=== PATIENT | female | born 1965 | race Caucasian/White ===

== ENCOUNTER 2018-09-30 21:49 | Emergency (ER) | payer MEDICAID ==
[~2018-09-30] VITALS: Ht 157.5 cm; Wt 46.3 kg
[2018-09-30 21:53] VITALS: BP 138/63
--- NOTE | 2018-09-30 21:57 | NUR ---
TO LOBBY A/W BED, AMBULATORY
[2018-09-30 21:58] VITALS: BP 138/63
--- NOTE | 2018-09-30 23:19 | NUR ---
PT TAKEN TO BED 5
--- NOTE | 2018-09-30 23:25 | NUR ---
53/F PRESENTS TO ED WITH , C/O L GREATER THAT R LOWER MOLAR PAIN, RADIATING TO UPPER ANTERIOR NECK, X2 WEEKS, WORSENING X3 DAYS. NOTED SWELLING ON UPPER ANTERIOR NECK. REPORTS MILD DYSPHAGIA DUE TO PAIN. REPORTS SUBJECTIVE FEVER AND CHILLS, AFEBRILE AT THIS TIME. DENIES CP, SOB, N/V. AOX4, RR EVEN AND UNLABORED. HX ASTHMA RX ALBUTEROL INHALER
--- NOTE | 2018-09-30 23:50 | NUR ---
Dr. Nicole evaluating patient at bedside.
[2018-09-30] MEDS ORDERED: KETOROLAC 60 MG/2 ML VIAL IM ONE (23:55)
[2018-09-30] MEDS ORDERED: AMOXICILLIN 500 MG CAP PO ONE (23:55)
[2018-10-01] MEDS ORDERED: AMOXICILLIN SUSP 250 MG/5 ML PO ONE (00:10)
[2018-10-01] MEDS ORDERED: AMOXICILLIN SUSP 250 MG/5 ML ONE (00:13)
--- NOTE | 2018-10-01 00:42 | NUR ---
Patient discharged with v/s stable. Written and verbal after care instructions given and explained. Patient alert, oriented and verbalized understanding of instructions. Ambulatory with steady gait. All questions addressed prior to discharge. ID band removed. Patient advised to follow up with PMD. Rx of MOTRIN, TRAMADOL, AMOXICILLIN given. Patient educated on indication of medication including possible reaction and side effects. Opportunity to ask questions provided and answered.
== END 2018-10-01 00:42 | disposition home or self-care (01) ==
LOC: MED 21:49
DX: K04.7 Periapical abscess without sinus (principal); I10 Essential (primary) hypertension; F17.210 Nicotine dependence, cigarettes, uncomplicated
CPT/HCPCS: 96372; 99283; J1885

== ENCOUNTER 2018-11-15 00:41 | Emergency (ER) | payer MEDICAID ==
[~2018-11-15] VITALS: Ht 157.5 cm; Wt 46.3 kg
[2018-11-15 00:42] VITALS: BP 134/90
--- NOTE | 2018-11-15 00:42 | NUR ---
TO BED # 03 AMBULATORY
[2018-11-15] MEDS ORDERED: LIDOCAINE 1% ***ER ONLY *** 10 MG/ML VIAL INJ ONE (01:00)
--- NOTE | 2018-11-15 01:00 | NUR ---
PT CAME INTO ER WITH C/O REDNESS, SWELLING AND PAIN ON HER CHIN X 2 WEEKS. PT WAS SEEN BY ERMD 2 WEEKS AGO. PAIN LEVEL IS 8/10 AT THIS TIME. PT IS A/OX4. ER MD MADE AWARE OF STATUS, SAFETY MEASURES IN PLACE.
--- NOTE | 2018-11-15 01:05 | NUR ---
AT PT BEDSIDE. PT DOING A PROCEDURE.
[2018-11-15] MEDS ORDERED: LIDOCAINE MPF 1% - 5 mL VIAL 5 ML ONE (01:10)
[2018-11-15 01:22] VITALS: BP 134/90
--- NOTE | 2018-11-15 01:22 | NUR ---
Patient discharged with v/s stable. Written and verbal after care instructions given and explained. Patient alert, oriented and verbalized understanding of instructions. Ambulatory with steady gait. All questions addressed prior to discharge. ID band removed. Patient advised to follow up with PMD. Rx of KEFLEX, PREDNISONE, MOTRIN, BACTRIM, NORCO WAS given. Patient educated on indication of medication including possible reaction and side effects. Opportunity to ask questions provided and answered. PT PAIN LEVEL HAS DECREASED 3/10 PRIOR TO D/C.
== END 2018-11-15 01:22 | disposition home or self-care (01) ==
LOC: MED 00:41
DX: L02.01 Cutaneous abscess of face (principal); J45.909 Unspecified asthma, uncomplicated; F17.200 Nicotine dependence, unspecified, uncomplicated; Z90.49 Acquired absence of other specified parts of digestive tract
CPT/HCPCS: 10060; 99283; J2001

== ENCOUNTER 2018-11-16 21:37 | Emergency (ER) | payer MEDICAID ==
[~2018-11-16] VITALS: Ht 157.5 cm; Wt 44.0 kg
[2018-11-16 22:12] VITALS: BP 106/69
--- NOTE | 2018-11-16 22:20 | NUR ---
PT AMBULATED BACK TO THE LOBBY, ESAS
--- NOTE | 2018-11-16 22:39 | NUR ---
pt ambulated to bed 9
--- NOTE | 2018-11-16 22:49 | NUR ---
53 Y/O F PRESENTED TO ED FOR RECHECK OF ABSCESS TO CHIN. PT SEEN X3DAYS AGO AND UNABLE TO SEE PCP UNTILL TOMORROW. PT WATNED A RECHECK AND GUAZE REMOVED TODAY. ABSCESS NOTED TO UNDERCHIN WITH SCANT DRAINAGE NOTED. 12/16 PAIN TO CHIN. ERMD NOTIFIED. WILL CONTINUE TO MONITOR.
[2018-11-16] MEDS ORDERED: IBUPROFEN 400 MG TAB PO ONE (23:45)
--- NOTE | 2018-11-16 23:47 | NUR ---
PT WOUND COVERED WITH NON ADHERENT GAUZE AND BANDAID.
[2018-11-17 00:09] VITALS: BP 110/70
--- NOTE | 2018-11-17 00:09 | NUR ---
Patient discharged with v/s stable. Written and verbal after care instructions given and explained. Patient alert, oriented and verbalized understanding of instructions. Ambulatory with steady gait. All questions addressed prior to discharge. ID band removed. Patient advised to follow up with PMD. Rx of MOTRIN 600MG given. Patient educated on indication of medication including possible reaction and side effects. Opportunity to ask questions provided and answered.
== END 2018-11-17 00:09 | disposition home or self-care (01) ==
LOC: MED 21:37
DX: L02.11 Cutaneous abscess of neck (principal); J45.909 Unspecified asthma, uncomplicated; I10 Essential (primary) hypertension
CPT/HCPCS: 99282

== ENCOUNTER 2020-02-21 17:35 | Emergency (ER) | payer MEDICAID ==
[~2020-02-21] VITALS: Ht 157.5 cm; Wt 46.3 kg
[2020-02-21 17:51] VITALS: BP 130/72
[2020-02-21] MEDS ORDERED: NACL 0.9% 1,000 ML IV SCH (18:07)
--- NOTE | 2020-02-21 18:08 | NUR ---
54 YO FEMALE C/O ABSCESS TO RIGHT CHIN X 3 DAYS. MED HX: ASTHMA, HTN
[2020-02-21] MEDS ORDERED: ACETAMINOPHEN EXTRA STRENGTH 500 MG TAB PO ONE (18:10)
[2020-02-21] MEDS ORDERED: AMPICILLIN/SULBACTAM 3 GM in NACL 0.9% 100 ML IV ONE (18:40)
[2020-02-21] MEDS ORDERED: KETOROLAC 15 MG/ML VIAL IVP ONE (18:40)
[2020-02-21] MEDS ORDERED: AMPICILLIN/SULBACTAM 3 GM VIAL ONE (18:42)
[2020-02-21 18:55] LABS: BASOPHILS % (AUTO) 0.2 % (0.0-2.0); EOSINOPHILS # (AUTO) 0.1 K/uL (0-0.4); EOSINOPHILS % (AUTO) 0.5 % (0.0-4.0); HEMATOCRIT 38.2 % (36-48); HEMOGLOBIN 12.9 g/dL (12.0-16.0); LYMPHOCYTES % (AUTO) 5.7 % (20.5-51.1); MEAN CORPUSCULAR HEMOGLOBIN 32 pg (27-31); MEAN CORPUSCULAR HGB CONC 34 g/dL (33-37); MEAN CORPUSCULAR VOLUME 93.4 fL (80-94); MONOCYTES # (AUTO) 1.2 K/uL (0.8-1.0); NEUTROPHILS # (AUTO) 14.6 K/uL (1.8-7.7); NEUTROPHILS % (AUTO) 86.6 % (42.2-75.2); PLATELET COUNT (AUTO) 372 K/uL (140-450); RED BLOOD CELL COUNT(AUTO) 4.09 MIL/uL (4.20-5.40); RED CELL DISTRIBUTION WIDTH 12.7 % (11.6-13.7); WHITE BLOOD COUNT (AUTO) 16.8 K/uL (4.8-10.8)
[2020-02-21 19:16] LABS: PROTHROMBIN TIME 9.2 secs (10.8-13.4)
[2020-02-21 19:19] LABS: ALBUMIN 3.5 g/dL (3.4-5.0); ANION GAP 14.9 (8-16); CREATININE 0.6 mg/dL (0.6-1.3); POTASSIUM 3.9 mmol/L (3.5-5.1); TOTAL BILIRUBIN 0.5 mg/dL (0.0-1.0)
--- NOTE | 2020-02-21 19:28 | NUR ---
RECEIVED REPORT FROM YOLANDA PINO . WILL CONT CARE AT THIS TIME.
--- NOTE | 2020-02-21 19:28 | NUR ---
RECEIVED REPORT FROM YOLANDA PINO . WILL CONT CARE AT THIS TIME.
--- NOTE | 2020-02-21 19:47 | NUR ---
CT WITH CONTRAST CONSENT FORM SIGNED AT THIS TIME.
[2020-02-21] MEDS ORDERED: LIDOCAINE/EPI 1% 1:100000 20 ML VIAL INJ ONE (21:53)
[2020-02-22] MEDS ORDERED: AMOXIL/CLAVULANATE 875/125 MG 1 TAB ONE (00:23)
[2020-02-22] MEDS ORDERED: SULFAMETH/TRIMETH DS 800/160MG 1 TAB ONE (00:23)
== END 2020-02-22 00:45 | disposition left against medical advice (07) ==
LOC: MED 17:35
DX: L02.01 Cutaneous abscess of face (principal); M54.2 Cervicalgia; F17.210 Nicotine dependence, cigarettes, uncomplicated; I10 Essential (primary) hypertension; J45.909 Unspecified asthma, uncomplicated
CPT/HCPCS: 36415; 41800; 70491; 80053; 83605; 85025; 85610; 85730; 86140; 87040; 96361; 96374; 96375; 99285; J0295; J1885; J2001

== ENCOUNTER 2021-12-14 11:25 | Emergency (ER) | payer MEDICAID ==
[~2021-12-14] VITALS: Ht 157.5 cm; Wt 44.0 kg
[2021-12-14 11:30] VITALS: BP 141/80
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
[2021-12-14 12:09] VITALS: BP 141/80
--- NOTE | 2021-12-14 12:10 | NUR ---
Patient discharged with v/s stable. Written and verbal after care instructions ABOUT LACERATION CARE given and explained. Patient verbalized understanding. Ambulatory with steady gait. All questions addressed prior to discharge. Advised to follow up with PMD.
== END 2021-12-14 12:10 | disposition home or self-care (01) ==
LOC: MED 11:25
DX: S61.213A Laceration without foreign body of left middle finger without damage to nail, initial encounter (principal); I10 Essential (primary) hypertension; J45.909 Unspecified asthma, uncomplicated; F17.200 Nicotine dependence, unspecified, uncomplicated; Z72.89 Other problems related to lifestyle; W45.8XXA Other foreign body or object entering through skin, initial encounter; Y93.89 Activity, other specified; Y92.89 Other specified places as the place of occurrence of the external cause; Y99.8 Other external cause status
CPT/HCPCS: 99281

== ENCOUNTER 2022-02-12 13:57 | Inpatient (IN) | payer MEDICAID ==
[~2022-02-12] VITALS: Ht 152.4 cm; Wt 42.8 kg
--- NOTE | 2022-02-12 14:15 | NUR ---
PT KIRK GOMEZ, VIA GURNEY TO BED 04.
[2022-02-12 14:20] VITALS: BP 92/63
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
[2022-02-12] MEDS ORDERED: ALBUTEROL SULFATE/IPRATROPIU 3 ML SOL IH ONE ×2 (14:55→15:30)
[2022-02-12] MEDS ORDERED: cefTRIAXone 1,000 MG VIAL ONE (15:29)
[2022-02-12] MEDS ORDERED: ACETAMINOPHEN 325 MG TAB PO ONE (15:30)
[2022-02-12] MEDS: NACL 0.9% 1,500 ML IV SCH ×2 (15:38→20:54)
--- NOTE | 2022-02-12 15:50 | NUR ---
pt swabbed for covid(brian). handed to lab aaaaaaaaaa
[2022-02-12] MEDS ORDERED: methylPREDNISolone SS 125 MG/2 ML VIAL IVP ONE (16:05)
[2022-02-12 16:10] LABS: BASOPHILS % (AUTO) 0.1 % (0.0-2.0); EOSINOPHILS % (AUTO) 0.2 % (0.0-4.0); HEMATOCRIT 37.7 % (36-48); HEMOGLOBIN 12.4 g/dL (12.0-16.0); LYMPHOCYTES # (AUTO) 0.1 K/uL (2.5-16.5); MEAN CORPUSCULAR HEMOGLOBIN 31 pg (27-31); MEAN CORPUSCULAR HGB CONC 33 g/dL (33-37); MEAN CORPUSCULAR VOLUME 94.5 fL (80-94); MONOCYTES % (AUTO) 3.5 % (1.7-9.3); NEUTROPHILS % (AUTO) 89.2 % (42.2-75.2); PLATELET COUNT (AUTO) 269 K/uL (140-450); RED BLOOD CELL COUNT(AUTO) 3.99 MIL/uL (4.20-5.40); RED CELL DISTRIBUTION WIDTH 12.9 % (11.6-13.7)
--- NOTE | 2022-02-12 16:21 | NUR ---
PT PLACED ON BIPAP PER ER PHYSICIAN. 03/13,R10 AND FIO2 100%. BIPAP IS PLUGGED INTO A RED OUTLET WITH ALARMS ON AND FUNCTIONING. WILL CONTINUE TO MONITOR.
[2022-02-12 16:36] LABS: ALBUMIN 2.4 g/dL (3.4-5.0); ANION GAP 26.9 (8-16); CARBON DIOXIDE 14.9 mmol/L (21-32); CREATININE 1.4 mg/dL (0.6-1.3); TOTAL BILIRUBIN 0.6 mg/dL (0.0-1.0)
[2022-02-12 16:37] LABS: WHITE BLOOD COUNT (AUTO) 1.1 K/uL (4.8-10.8)
[2022-02-12 16:38] LABS: POTASSIUM 2.8 mmol/L (3.5-5.1)
[2022-02-12] MEDS ORDERED: POTASSIUM CHLORIDE 20% 40 MEQ/15 ML UDC PO ONE (17:00)
[2022-02-12] MEDS ORDERED: MAG SULF 2000 MG/WATER PREMIX 50 ML IV ONE (17:00)
--- NOTE | 2022-02-12 17:00 | NUR ---
Spoke to Dr Gibson, he is aware of HR in 120s and all critical labs
[2022-02-12] MEDS ORDERED: LEVALBUTEROL 1.25 MG/0.5 ML NEBU INH ONE (17:05)
--- NOTE | 2022-02-12 17:13 | NUR ---
PT REMOVED BIPAP AND REFUSED TO BE PLACED BACK ON. PT PLACED ON 5L NC AND BREATHING TX TO BE ADMINISTERED. WILL CONTINUE TO MONITOR.
[2022-02-12] MEDS ORDERED: fentaNYL citrate 0.05 MG/ML VIAL IM ONE (17:30)
[2022-02-12] MEDS ORDERED: methylPREDNISolone SS 125 MG/2 ML VIAL ONE (17:32)
[2022-02-12] MEDS ORDERED: CEFEPIME 1,000 MG in DEXTROSE 5% 50 ML IV ONE (17:50)
[2022-02-12] MEDS ORDERED: CEFEPIME 1,000 MG VIAL ONE (18:33)
[2022-02-12] MEDS ORDERED: fentaNYL citrate 0.05 MG/ML VIAL ONE (18:34)
--- NOTE | 2022-02-12 18:45 | NUR ---
Pt AOX4, able to make needs known. Resp even and labored on 6 LPM, 92%. Afebrile. Experiencing pain relief from medication administered
--- NOTE | 2022-02-12 19:35 | NUR ---
Pt report given to ALVAREZ Capps. Transfer of care at this time.
[2022-02-12] MEDS ORDERED: ALBUTEROL SULFATE/IPRATROPIU 3 ML SOL IH PRN (20:45)
[2022-02-12 21:09] LABS: MAGNESIUM 1.2 mg/dL (1.8-2.4); PHOSPHORUS 3.8 mg/dL (2.5-4.9)
[2022-02-12 21:15] LABS: PROTHROMBIN TIME 10.5 secs (10.8-13.4)
--- NOTE | 2022-02-12 21:23 | NUR ---
ATTEMPTED TO CALL REPORT TO ICU 5. ICU UNABLE TO TAKE REPORT AT THIS TIME. ICU AWAITING REGISTRY NURSE ARRIVAL TO TAKE PT. CONTINUED MONITORING OF STATUS.
--- NOTE | 2022-02-12 21:25 | NUR ---
PT HAS IVF BOLUS ON GOING. NON-REBREATHER MASK REMAINS IN PLACE. PT SKIN MOTTLED. CHARGE NURSE AWARE OF PT UNABLE TO GO TO ICU AND OF THE PT'S CURRENT STATUS IN REGARDS TO RESPIRATORY AND BP STATUS.
[2022-02-12 21:38] LABS: APPEARANCE,URINE HAZY (CLEAR); BILIRUBIN,URINE NEGATIVE (NEGATIVE); BLOOD, URINE 3+ (NEGATIVE); COLOR,URINE YELLOW (YELLOW); UGLUCOSE NEGATIVE (NEGATIVE)
[2022-02-12 21:39] LABS: LEUKOCYTE ESTERASE ,URINE NEGATIVE (NEGATIVE); NITRITE, URINE NEGATIVE (NEGATIVE)
[2022-02-12] MEDS ORDERED: VANCOMYCIN PER PHARMACY MC PRN (21:40)
[2022-02-12 21:45] LABS: WBC,URINE NONE SEEN /HPF (0-5)
--- NOTE | 2022-02-12 22:21 | NUR ---
PT CURRENTLY IN CT-SCAN TO BE TAKEN TO ICU [address] PT TOLERATING PROCEDURE AT THIS TIME.
[2022-02-12 22:52] VITALS: BP 87/70
[2022-02-12] MEDS ORDERED: PIPERACILLIN/TAZOBACTAM 3.375 GM VIAL IV ONE (22:59)
[2022-02-12] MEDS ORDERED: VANCOMYCIN 1,000 MG VIAL ONE (22:59)
[2022-02-12 23:00] VITALS: BP 97/72
--- NOTE | 2022-02-12 23:20 | NUR ---
PT FOUND ON NRB PT HAS INCR WOB PT REMOVED FROM NRB AND PLACED ON HFNC PT IS REFUSING BIPAP AT THIS TIME PT PLACED ON HFNC 40L 100%
[2022-02-12 23:30] VITALS: BP 118/43
--- NOTE | 2022-02-12 23:30 | NUR ---
@ 3821 Pt admitted to ICU from ER on [place] accompanied by RAPHAEL PINO awake alert but in distress due to shortness of breadth, tachypneic, tachycardia very restless, able to follow command moves all extremities oxygen delivery via non rebreather o2 sat 97 to 100% education on care plan bed in low position orientation to immediate environment and unit. Generalized weakness noted, warm body cool extremities, cyanotic finger, pt said that being sick at home for 4 days. New IV started continue ongoing IV fluids bolus from ER. Skin care, CHG bath done with gurwinder care. Close monitoring at the bedside due to pt's condition as she took off her oxygen many times. Complete assessment pt said that she have family/ children but none present as at the time of admission.
[2022-02-12] MEDS: PIPERACILLIN/TAZOBACTAM 3.375 GM in DEXTROSE 5% 50 ML IV SCH (23:42)
[2022-02-12] MEDS: methylPREDNISolone SS 125 MG/2 ML VIAL IVP SCH (23:45)
[2022-02-13] VITALS (14 sets, daily range): BP systolic 38–109; BP diastolic 13–65
[2022-02-13] MEDS ORDERED: VANCOMYCIN 1GM/DEXT 5% PREMIX 200 ML IV SCH
--- NOTE | 2022-02-13 00:04 | NUR ---
ABG PERFORMED AND ABNORM ABG RESULTS WERE REPORTED TO GEOLOGIST AND [facility] WAS CALLED PENDING CALL BACK FROM DIAMOND DRILLER ABG RESULTS ARE FOLLOWS ON HFNC 40L 100% ... PH ..... 7.107 CO2 ... 36.9 HCO3 .. 11.4 BE ...... -17.2 PO2 .... 110.3 SPOKE W/ DR HILTON AND REPORTED ABG RESULTS
[2022-02-13] MEDS ORDERED: MORPHINE SULFATE 2 MG/ML SYR IVP PRN (00:25)
[2022-02-13] MEDS ORDERED: SODIUM BICARBONATE 8.4% PFS 50 MEQ/50 ML SYR IVP SCH ×3 (00:25→08:30)
[2022-02-13] MEDS: NACL 0.9% 1,000 ML IV SCH ×2 (00:25→08:35)
[2022-02-13] MEDS ORDERED: SODIUM BICARBONATE 8.4% PFS 50 MEQ/50 ML SYR IVP ONE ×4 (00:34→04:37)
--- NOTE | 2022-02-13 01:15 | NUR ---
@[address] Hills on pulmonogist about the pt's condition and latest ABG result ph 7.107 po2 103 and HCO3 11.4 order received to give Sodium Bicarbonate [address] pt on Bipap. 2 amps bicarb given and LORI RAMSEY advised of MD'S order.
[2022-02-13] MEDS ORDERED: NOREPINEPHRINE 4 MG/4 ML VIAL IV ONE ×2 (02:13→07:26)
--- NOTE | 2022-02-13 02:25 | NUR ---
@0220 PT became unresponsive turned blue HR 40's code blue called Dr Haile responded at the bedside Dr OROSCO notified unable to get the family telephone number provided no tone online. 2 Epinephrine IVP 1 bicarb given and resuscitated
[2022-02-13] MEDS ORDERED: PROPOFOL 1000 MG/100 ML PREMIX 100 ML IV ONE (02:39)
--- NOTE | 2022-02-13 02:41 | NUR ---
Dr Acosta notified about pt's code blue resuscitated Dr Haile from ER order received for stat lab CBC CMP TROPONIN LACTIC ACID
[2022-02-13] MEDS: NOREPINEPHRINE 4 MG in DEXTROSE 5% 250 ML IV PRN ×4 (02:44→10:00)
--- NOTE | 2022-02-13 02:47 | NUR ---
I'VE BEEN TRYING TO CALL THE FAMILY 2 X FOR THE PT. POST CODED, BUT THE NUMBER ON THE FACE SHEET FOR JESSICA DICKERSON (SIGNIFICANT OTHER) [phone] IS NOT RINGING
--- NOTE | 2022-02-13 02:48 | NUR ---
I CALLED CONVERTING TECHNICIAN AND ASKED TO HELP REACH THE FAMILY, SINCE WE COULDN'T GET HOLD OF THEM.
[2022-02-13] MEDS ORDERED: POTASSIUM CHLORIDE 40 MEQ, LIDOCAINE MPF 1% 25 MG in NACL 0.9% 250 ML IV ONE (03:05)
--- NOTE | 2022-02-13 03:14 | NUR ---
Second code blue now ended Dr Haile still at the bedside resuscitated HR 122 palpable pulses levophed @ 30mcgs/minin intubated Dr Acosta aware.
--- NOTE | 2022-02-13 03:20 | NUR ---
Dr Babb notified of pt's condition code blue events resuscitated twice by Dr Haile from ER order received to stat Versed, Levophed, vasopressin and Neosynephrine
[2022-02-13] MEDS ORDERED: VASOPRESSIN 20 UNITS/ML VIAL ONE (03:24)
[2022-02-13] MEDS ORDERED: MIDAZOLAM MDV 50 MG in NACL 0.9% 40 ML IV PRN (03:25)
[2022-02-13] MEDS ORDERED: PHENYLEPHRINE 40 MG in NACL 0.9% 250 ML IV PRN (03:25)
[2022-02-13] MEDS ORDERED: VASOPRESSIN 20 UNITS in NACL 0.9% 250 ML IV SCH (03:25)
[2022-02-13] MEDS: NACL 0.9% 2,000 ML IV SCH ×2 (03:25→05:34)
[2022-02-13] MEDS ORDERED: PHENYLEPHRINE 10 MG/ML VIAL ONE (03:36)
[2022-02-13 03:39] LABS: HEMOGLOBIN 7.5 g/dL (12.0-16.0)
[2022-02-13 03:46] LABS: HEMATOCRIT 22.5 % (36-48); MEAN CORPUSCULAR HEMOGLOBIN 32 pg (27-31); MEAN CORPUSCULAR HGB CONC 33 g/dL (33-37); MEAN CORPUSCULAR VOLUME 95.5 fL (80-94); PLATELET COUNT (AUTO) 46 K/uL (140-450); RED BLOOD CELL COUNT(AUTO) 2.36 MIL/uL (4.20-5.40); RED CELL DISTRIBUTION WIDTH 12.7 % (11.6-13.7)
--- NOTE | 2022-02-13 03:53 | NUR ---
As at this time pt on max rate Levophed 30mcgs/min/Neosynephrine and Vasopressin 0.03uints as per MD'S order HR 130 B/P 112/23 Intubated a/c prvc fio2 100% tv 375 peep 8n rate 20 still in critical mode.
[2022-02-13 04:01] LABS: WHITE BLOOD COUNT (AUTO) 2.3 K/uL (4.8-10.8)
[2022-02-13 04:13] LABS: ALBUMIN 1.3 g/dL (3.4-5.0); CARBON DIOXIDE 19.3 mmol/L (21-32); CREATININE 2.5 mg/dL (0.6-1.3)
[2022-02-13] MEDS ORDERED: SODIUM BICARBONATE 8.4% 100 MEQ in NACL 0.9% 1,000 ML IV SCH (04:20)
[2022-02-13 04:23] LABS: POTASSIUM 6.3 mmol/L (3.5-5.1)
[2022-02-13] MEDS ORDERED: DEXTROSE 50% 50 ML SYR IVP SCH (04:25)
[2022-02-13] MEDS ORDERED: INSULIN REGULAR, HUMAN 100 UNIT/ML VIAL SUBQ ONE (04:25)
--- NOTE | 2022-02-13 04:28 | NUR ---
I MADE A FOLLOW UP WITH THE TOOL MACHINE SHOP SUPERVISOR, IF THEY WERE ABLE TO REACH THE FAMILY AND THE PERSON IN TOOL MACHINE SHOP SUPERVISOR STATED "WE DON'T DO THAT".
[2022-02-13] MEDS ORDERED: CALCIUM GLUC 1 GM/50 mL NS BAG 50 ML IV SCH (04:30)
--- NOTE | 2022-02-13 04:30 | NUR ---
@0400 critical lab result hgb 7.6 plt 46 order received for type and screen and to transfuse 1 unit PRBC
[2022-02-13 04:56] LABS: BASOPHILS % (MANUAL) 1 % (0-2); EOSINOPHILS % (MANUAL) 3 % (0-4); LYMPHOCYTES % (MANUAL) 21 % (20-46); MONOCYTES % (MANUAL) 4 % (5-12)
[2022-02-13] MEDS ORDERED: DEXTROSE 50% 50 ML SYR IVP PRN (05:00)
[2022-02-13] MEDS ORDERED: PIPERACILLIN/TAZOBACTAM 3.375 GM in DEXTROSE 5% 50 ML IV SCH (05:00)
[2022-02-13] MEDS ORDERED: PIPERACILLIN/TAZOBACTAM 3.375 GM VIAL IV ONE (05:43)
[2022-02-13] MEDS: methylPREDNISolone SS 125 MG/2 ML VIAL IVP SCH (05:45)
[2022-02-13] MEDS: PIPERACILLIN/TAZOBACTAM 3.375 GM in DEXTROSE 5% 50 ML IV SCH (05:47)
[2022-02-13] MEDS ORDERED: DEXTROSE 10% 1,000 ML IV SCH (07:25)
--- NOTE | 2022-02-13 07:30 | NUR ---
RECEIVED REPORT FROM FLOOR HELPER. PT S/P CODE AT 0300. ETT TO VENT, UNRESPONSIVE TO STIMULI. RIJ TLC RUNNING NS 100ML/HR, LEVOPHED 30MCG, VASOPRESSIN 0.03U, NEOSYNEPHRINE 150MCG, D10 40ML/HR
[2022-02-13 07:32] LABS: EOSINOPHILS % (AUTO) 1.3 % (0.0-4.0); LYMPHOCYTES # (AUTO) 0.4 K/uL (2.5-16.5); LYMPHOCYTES % (AUTO) 15.5 % (20.5-51.1); MEAN CORPUSCULAR HEMOGLOBIN 32 pg (27-31); MEAN CORPUSCULAR HGB CONC 33 g/dL (33-37); MONOCYTES # (AUTO) 0.1 K/uL (0.8-1.0); MONOCYTES % (AUTO) 5.2 % (1.7-9.3); NEUTROPHILS # (AUTO) 2.1 K/uL (1.8-7.7); PLATELET COUNT (AUTO) 32 K/uL (140-450); RED BLOOD CELL COUNT(AUTO) 1.82 MIL/uL (4.20-5.40); RED CELL DISTRIBUTION WIDTH 13.1 % (11.6-13.7); WHITE BLOOD COUNT (AUTO) 2.7 K/uL (4.8-10.8)
--- NOTE | 2022-02-13 07:32 | NUR ---
The last capillary blood sugar was LO via the glucometer, D50 IVP given Dr Acosta notified as he made rounds order received to start pt on D10 @40 ml/hr in addtion to main iv fluids
[2022-02-13] MEDS ORDERED: DEXTROSE 10% 0 ML IV ONE (07:34)
--- NOTE | 2022-02-13 07:47 | NUR ---
Change of shift report given to ARLYN PINO at the bedside for continuity of care as at this pt is very critical unstable unresponsive intubated all pressors iv drips rates at max
[2022-02-13 07:48] LABS: ALBUMIN 0.8 g/dL (3.4-5.0); ANION GAP 32.4 (8-16); CARBON DIOXIDE 14.5 mmol/L (21-32); CREATININE 2.3 mg/dL (0.6-1.3); HEMATOCRIT 17.7 % (36-48); HEMOGLOBIN 5.8 g/dL (12.0-16.0); POTASSIUM 4.9 mmol/L (3.5-5.1); TOTAL BILIRUBIN 1.2 mg/dL (0.0-1.0)
[2022-02-13] MEDS ORDERED: MAG SULF 2000 MG/WATER PREMIX 50 ML IV ONE ×2 (07:50→08:35)
[2022-02-13] MEDS ORDERED: KCL 20 MEQ/WATER INJ PREMIX 200 ML IV ONE (07:50)
[2022-02-13 08:15] LABS: PROTHROMBIN TIME 21.6 secs (10.8-13.4)
--- NOTE | 2022-02-13 10:16 | NUR ---
CONTACTED AMARI DENG [phone] FOR A FAMILY CONTACT CHECK. SPOKE WITH NETWORK PLANNER, LASHAE, WHO REPORTS PD WILL BE SENT TO ATTEMPT TO MAKE CONTACT WITH FAMILY, ONCE AN OFFICER IS AVAIL. PROVIDED LASHAE WITH CONTACT INFO TO BE GIVEN TO FAMILY. AMARI DENG TO FOLLOW UP ONCE CONTACT IS MADE.
[2022-02-13 10:39] LABS: CANNABINOID, URINE POSITIVE ng/mL (NEG <=50)
[2022-02-13 10:40] LABS: BARBITURATE, URINE NEGATIVE ng/ml (NEG <=200); BENZODIAZEPINE, URINE NEGATIVE ng/mL (NEG <=200); COCAINE, URINE NEGATIVE ng/mL (NEG <=300); OPIATE, URINE POSITIVE ng/mL (NEG <=2000); PHENCYCLIDINE SCREEN,URINE NEGATIVE ng/mL (NEG <=25)
--- NOTE | 2022-02-13 10:45 | NUR ---
PT'S JESSICA MCLAUGHLIN, AT BEDSIDE, UPDATED ON PT'S CONDITION. PER JESSICA, PT WISHED TO BE DNR PRIOR TO HOSPITALIZATION
--- NOTE | 2022-02-13 11:00 | NUR ---
ASYSTOLE ON MONITOR. DR OROSCO AT BEDSIDE SPEAKING TO ARNOLDO LOPEZ. JESSICA AGREED TO KEEP PT DNR. PER JESSICA, HE DOES NOT KNOW THE PHONE NUMBER TO PT'S FAMILY AND WILL NEED TO FIND THEM
--- NOTE | 2022-02-13 11:05 | NUR ---
TIME OF 1105 Addendum: 02/13/22 at 1130 by Tien Sánchez RN PRONOUNCED BY DR OROSCO
[2022-02-13] MEDS ORDERED: MIDAZOLAM MDV 100 MG in NACL 0.9% 80 ML IV PRN (11:25)
--- NOTE | 2022-02-13 12:08 | NUR ---
1140: [facility] NOTIFIED CASE # [id number] 1205: BODY RELEASED BY PNEUMATIC TOOL REPAIRER YASSINE FARAH
[2022-02-13] MEDS ORDERED: PIPERACILLIN/TAZOBACTAM 2.25 GM in DEXTROSE 5% 50 ML IV SCH (13:00)
--- NOTE | 2022-02-13 16:00 | NUR ---
transferred to 126a , awaiting mortuary for picking table worker. cold rolling supervisor Gavi jordan
[2022-02-13] MEDS ORDERED: AZITHROMYCIN 500 MG in DEXTROSE 5% 250 ML IV SCH (16:10)
--- NOTE | 2022-02-13 18:53 | NUR ---
PICKED UP BY JARROD MUSE
--- NOTE | 2022-02-15 07:37 | NUR ---
LATE ENTRY- IV ROCEPHIN DISCONTINUED AT 2221.
== END 2022-02-13 11:10 | DRG 720 ==
LOC: MED 13:57 → MTU 20:42 → MIC 22:05
PROVIDERS: ADMIT Student in an Organized Health Care Education/Training Program; ATTEND Student in an Organized Health Care Education/Training Program
PROC: 5A0935A Assistance with Respiratory Ventilation, Less than 24 Consecutive Hours, High Flow/Velocity Cannula (ICD-10-PCS; 2022-02-12)
PROC: 5A12012 Performance of Cardiac Output, Single, Manual (ICD-10-PCS; principal; 2022-02-13)
PROC: 5A1935Z Respiratory Ventilation, Less than 24 Consecutive Hours (ICD-10-PCS; 2022-02-13)
PROC: 02HV33Z Insertion of Infusion Device into Superior Vena Cava, Percutaneous Approach (ICD-10-PCS; 2022-02-13)
PROC: B548ZZA Ultrasonography of Superior Vena Cava, Guidance (ICD-10-PCS; 2022-02-13)
PROC: 30233N1 Transfusion of Nonautologous Red Blood Cells into Peripheral Vein, Percutaneous Approach (ICD-10-PCS; 2022-02-13)
PROC: 0BH17EZ Insertion of Endotracheal Airway into Trachea, Via Natural or Artificial Opening (ICD-10-PCS; 2022-02-13)
DX: A41.9 Sepsis, unspecified organism (principal); D65 Disseminated intravascular coagulation [defibrination syndrome]; I46.9 Cardiac arrest, cause unspecified; J96.01 Acute respiratory failure with hypoxia; K72.00 Acute and subacute hepatic failure without coma; J18.9 Pneumonia, unspecified organism; R57.8 Other shock; R65.21 Severe sepsis with septic shock; E43 Unspecified severe protein-calorie malnutrition; D70.9 Neutropenia, unspecified; J44.0 Chronic obstructive pulmonary disease with (acute) lower respiratory infection; J45.901 Unspecified asthma with (acute) exacerbation; T40.601A Poisoning by unspecified narcotics, accidental (unintentional), initial encounter; J44.1 Chronic obstructive pulmonary disease with (acute) exacerbation; E87.6 Hypokalemia; Z20.822 Contact with and (suspected) exposure to COVID-19; R74.01 Elevation of levels of liver transaminase levels; D64.9 Anemia, unspecified; F15.10 Other stimulant abuse, uncomplicated; N12 Tubulo-interstitial nephritis, not specified as acute or chronic; N17.9 Acute kidney failure, unspecified; Z68.1 Body mass index [BMI] 19.9 or less, adult; Y92.89 Other specified places as the place of occurrence of the external cause
CPT/HCPCS: 31500; 36415; 36430; 36600; 71045; 71250; 80053; 80305; 81001; 82150; 82550; 82553; 82803; 82948; 83605; 83690; 83735; 83880; 84100; 84484; 85025; 85610; 85730; 86886; 86900; 86901; 86920; 87040; 87081; 87086; 92950; 93005; 94002; 96365; 96366; 96367; 96375; 99291; J0692; J0696; J2270; J2370; J2543; J2704; J2930; J3010; J3370; J3475; J3480; J3490; J7030; J7060; J7612; P9016; Q0092; Q9967